=== PATIENT | female | born 1965 | race Caucasian/White ===

== ENCOUNTER 2023-05-25 10:23 | Day surgery (SDC) | payer OTHER ==
[~2023-05-25] VITALS: Ht 162.6 cm; Wt 71.9 kg
[~2023-05-25 10:23] MED LIST: LR 1,000 ML IV SCH; NORCO 325 MG-51 TAB PO; Ondansetron 4 MG/2 ML VIAL IV PRN
[2023-05-25] MEDS ORDERED: ELIQUIS 5MG PO (11:16)
[2023-05-25] MEDS ORDERED: ATIVAN 1MG T1 MG/TAB PO (11:16)
[2023-05-25] MEDS ORDERED: NORCO 325 MG-101 TAB PO (11:17)
[2023-05-25] MEDS ORDERED: FERRO-TIME325 MG (11:17)
[2023-05-25] MEDS ORDERED: PRAVACHOL10 MG PO (11:18)
[2023-05-25 11:31] VITALS: BP 151/80; PULSE 81; TEMP 97.9
[2023-05-25 12:16] VITALS: BP 131/80; PULSE 78; TEMP 97.8
[2023-05-25 12:30] VITALS: BP 123/63; PULSE 70
[2023-05-25 12:45] VITALS: BP 122/75; PULSE 94
[2023-05-25 13:00] VITALS: BP 117/40; PULSE 98
[2023-05-25 13:15] VITALS: BP 128/88; PULSE 98
--- NOTE | 2023-05-25 13:28 | NUR ---
1216- PATIENT RETURNS TO [facility] VIA CART. PT AWAKE AND ALERT. RESPIRATIONS UNLABORED. AMBULATED TO RECLINER CHAIR WITH 2:1 SBA. PT DENIES NAUSEA OR ABDOMINAL PAIN. HOOKED UP TO MONITOR AND VS OBTAINED. CALL LIGHT AT SIDE. 1220- DR. SUMNER IN ROOM SPEAKING WITH PATIENT. 1225- PATIENT TOLERATING WATER AND MUFFIN WITHOUT NAUSEA OR ABD PAIN. 1252- D/C INSTRUCTIONS REVIEWED WITH PATIENT. PT VERBALIZED UNDERSTANDING AND A COPY OF INSTRUCTIONS PROVIDED IN D/C FOLDER. 1300- PATIENT DRESSES SELF. 1328- PATIENT DISCHARGED FROM UNIT VIA W/C TO A PERSONAL VEHICLE. PT LEFT HOSPITAL IN STABLE CONDITION.
== END 2023-05-25 13:28 | disposition home or self-care (01) ==
LOC: SDCO 10:23
DX: D12.2 Benign neoplasm of ascending colon (principal); K62.5 Hemorrhage of anus and rectum; K21.9 Gastro-esophageal reflux disease without esophagitis; G47.33 Obstructive sleep apnea (adult) (pediatric); Z87.891 Personal history of nicotine dependence; Z80.0 Family history of malignant neoplasm of digestive organs; Z99.81 Dependence on supplemental oxygen; Z79.01 Long term (current) use of anticoagulants; Z86.718 Personal history of other venous thrombosis and embolism
CPT/HCPCS: J2704; J7120